=== PATIENT | male | born 1950 | race Caucasian/White ===

== ENCOUNTER 2022-10-23 08:34 | Day surgery (SDC) | payer MEDICARE, BC ==
[~2022-10-23] VITALS: Ht 185.4 cm; Wt 102.2 kg
--- NOTE | 2022-10-23 08:50 | NUR ---
Patient arrived at 0845. Assisted pt to [facility]. 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 Ian TAVAREZ at bedside. States to hold off on patient and not get him ready yet.
--- NOTE | 2022-10-23 09:15 | NUR ---
[facility] team here to get the patient now. Unable to complete admission questions/vital signs/physical assessment before patient left. [facility] team aware, Ian TAVAREZ aware and will consent the patient.
[2022-10-23] MEDS ORDERED: FLUT15.810 INH (09:34)
[2022-10-23] MEDS ORDERED: CLOP75TA34 PO (09:34)
[2022-10-23] MEDS ORDERED: TRAM50TA2 PO (09:34)
[2022-10-23] MEDS ORDERED: PSYL0.4C2 PO (09:34)
[2022-10-23] MEDS ORDERED: FLO0.4C PO (09:34)
[2022-10-23] MEDS ORDERED: ATOR20TA66 PO (09:34)
[2022-10-23] MEDS ORDERED: MONT10TA21 PO (09:34)
[2022-10-23] MEDS ORDERED: NORT25CA PO (09:34)
[2022-10-23] MEDS ORDERED: MIDO5TAB4 PO (09:34)
[2022-10-23] MEDS ORDERED: FLUT16SP26 INH (09:34)
[2022-10-23] MEDS ORDERED: CYAN250014 PO (09:34)
[2022-10-23 09:45] VITALS: BP_SYST 129; BP_SYST 144; BP_DIAS 61; BP_DIAS 78
[2022-10-23 10:00] VITALS: BP 136/75
[2022-10-23 10:15] VITALS: BP 134/74
[2022-10-23 10:30] VITALS: BP 137/77
[2022-10-23 10:58] LABS: APPEARANCE,CSF CLEAR; CSF SUPERNATANT COLOR COLORLESS; CSF VOLUME 14 ML; TUBE# COUNTED 3
[2022-10-23 11:00] VITALS: BP 150/84
[2022-10-23 11:00] LABS: CSF RBC 1 /CU MM (0); CSF WBC CT 10 /CU MM (0-5); LYMPHOCYTES,CSF 93 % (40-80); MONOCYTES,CSF 7 % (15-45)
[2022-10-23 14:14] LABS: GLUCOSE,CSF 49 MG/DL (40-75); TOTAL PROTEIN,CSF 66 MG/DL (30-60)
[2022-10-24 12:11] LABS: IMMUNOGLOBULIN G, QN, SERUM 1584 mg/dL (603-1613)
[2022-10-25 08:01] LABS: HSV 1 PCR Negative (Negative); HSV 2 PCR Negative (Negative)
[2022-10-27 14:04] LABS: IMMUNOGLOBULIN G, QN CSF 8.4 mg/dL (0.0-10.3)
[2022-10-28 16:31] LABS: LYME IGG P23 AB Absent (.); LYME IGG P28 AB Absent (.); LYME IGG P30 AB Absent (.); LYME IGG P41 AB Present (.); LYME IGG P45 AB Absent (.); LYME IGG P58 AB Present (.); LYME IGG P66 AB Absent (.); LYME IGG P93 AB Absent (.); LYME IGG WB INTERP Negative (.); LYME IGM P23 AB Absent (.); LYME IGM P39 AB Absent (.); LYME IGM P41 AB Absent (.); LYME IGM WB INTERP Negative (.); VDRL, CSF Non Reactive (Non Rea:<1:1)
== END 2022-10-23 11:20 | disposition home or self-care (01) ==
LOC: SSTAY O 08:34
PROVIDERS: ATTEND Nurse Practitioner Family
DX: G62.9 Polyneuropathy, unspecified (principal); M19.90 Unspecified osteoarthritis, unspecified site; G47.33 Obstructive sleep apnea (adult) (pediatric); J43.9 Emphysema, unspecified; I10 Essential (primary) hypertension; F17.200 Nicotine dependence, unspecified, uncomplicated; Z98.890 Other specified postprocedural states; Z79.51 Long term (current) use of inhaled steroids; Z79.899 Other long term (current) drug therapy
CPT/HCPCS: 36415; 62328; 82040; 82042; 82164; 82784; 83873; 83916; 86592; 86617; 87529; 88108; 89051

== ENCOUNTER 2024-09-15 15:10 | Inpatient (IN) | payer MEDICARE, BC ==
[~2024-09-15] VITALS: Ht 185.4 cm; Wt 96.0 kg
[~2024-09-15 15:10] MED LIST: ATOR20TA66 PO; CLOP75TA34 PO; CYAN250014 PO; FLO0.4C PO; FLUT15.810 INH; FLUT16SP26 INH; MIDO5TAB4 PO; MONT-47 PO; NORT25CA PO; PSYL0.4C2 PO; TRAM50TA2 PO
[2024-09-15] MEDS ORDERED: gabapentin 400mg capsule PO SCH (17:30)
[2024-09-15] MEDS: gabapentin 300mg capsule PO ONE (17:48)
[2024-09-15] MEDS ORDERED: ondansetron/PF 4mg/2ml inj IV PRN (18:30)
[2024-09-15] MEDS ORDERED: acetaminophen 325mg tablet PO PRN (18:30)
[2024-09-15 19:12] LABS: BASOPHILS # (AUTO) 0.1 X10'3 (0-0.2); BASOPHILS % (AUTO) 0.9 % (0-1); EOSINOPHILS # (AUTO) 0.2 X10'3 (0-0.9); EOSINOPHILS % (AUTO) 2.5 % (0-6); HEMOGLOBIN 9.3 g/dl (14.0-17.9); LYMPHOCYTES # (AUTO) 0.9 X10'3 (1.1-4.8); LYMPHOCYTES % (AUTO) 9.4 % (21-51); MEAN CORPUSCULAR HEMOGLOBIN 27.1 PG (27.0-31.0); MEAN CORPUSCULAR HGB CONC 32.1 g/dL (33.0-36.5); MEAN CORPUSCULAR VOLUME 84.4 FL (78-98); MEAN PLATELET VOLUME 8.1 FL (7.4-10.4); MONOCYTES # (AUTO) 0.9 X10'3 (0-0.9); MONOCYTES % (AUTO) 8.9 % (2-12); NEUTROPHILS # (AUTO) 7.9 X10'3 (1.8-7.7); NEUTROPHILS % (AUTO) 78.3 % (42-75); PLATELET COUNT 321 X10'3 (140-440); RED BLOOD COUNT 3.43 X10'6 (4.70-6.10); RED CELL DISTRIBUTION WIDTH 20.2 % (11.5-14.5)
[2024-09-15] MEDS: docusate sod 100mg capsule PO SCH (19:12)
[2024-09-15] MEDS: HYDROcodone/acetaminophen 10/325mg tab PO PRN (19:13)
[2024-09-15] MEDS: heparin, porcine 5000 units/ml vial SQ SCH (19:14)
[2024-09-15] MEDS ORDERED: GABA300C PO (19:24)
[2024-09-15 19:25] LABS: ALANINE AMINOTRANSFERASE 10 U/L (12-78); ALBUMIN 2.6 G/DL (3.4-5.0); ALBUMIN/GLOBULIN RATIO 0.5 (1.1-1.5); ALKALINE PHOSPHATASE 67 IU/L (46-116); ANION GAP 11 (8-16); ASPARTATE AMINO TRANSFERASE 5 U/L (10-37); BILIRUBIN,TOTAL 0.4 MG/DL (0.1-1.0); BLOOD UREA NITROGEN 77 MG/DL (7-18); BUN/CREATININE RATIO 12.6 (10.0-20.0); CALCIUM 8.3 MG/DL (8.5-10.1); CHLORIDE 112 MMOL/L (99-107); CREATININE 6.12 MG/DL (0.60-1.10); GLUCOSE 107 MG/DL (70-104); PHOSPHORUS 7.6 MG/DL (2.3-4.5); POTASSIUM 5.1 MMOL/L (3.5-5.1); SODIUM 141 MMOL/L (135-145); TOTAL CARBON DIOXIDE 18.3 MMOL/L (24-32); TOTAL PROTEIN 7.7 G/DL (6.4-8.2); eCRCL 12 ML/MIN; eGFR 9 ML/MIN
[2024-09-15 19:37] LABS: ANISOCYTOSIS 2+; PLATELET ESTIMATE NORMAL; POIKILOCYTOSIS 1+
[2024-09-15 19:38] LABS: BURR CELLS FEW; ELLIPTOCYTES 1+
[2024-09-15] MEDS: PERFLUTREN PROTEIN-A MICROSPHR (Optison) 0.22 MG/ML 3ML VIAL IV ONE (21:57)
[2024-09-16] VITALS (9 sets, daily range): BP systolic 108–153; BP diastolic 51–63; PULSE 66–86; RESP 12–19; TEMP 97.6–98.6; O2SAT 92–98
[2024-09-16 03:12] LABS: BASOPHILS # (AUTO) 0.1 X10'3 (0-0.2); BASOPHILS % (AUTO) 0.9 % (0-1); EOSINOPHILS # (AUTO) 0.3 X10'3 (0-0.9); EOSINOPHILS % (AUTO) 3.1 % (0-6); HEMATOCRIT 30.3 % (42.0-52.0); HEMOGLOBIN 9.6 g/dl (14.0-17.9); LYMPHOCYTES # (AUTO) 1.6 X10'3 (1.1-4.8); LYMPHOCYTES % (AUTO) 16.7 % (21-51); MEAN CORPUSCULAR HEMOGLOBIN 26.8 PG (27.0-31.0); MEAN CORPUSCULAR HGB CONC 31.7 g/dL (33.0-36.5); MEAN CORPUSCULAR VOLUME 84.4 FL (78-98); MEAN PLATELET VOLUME 8.3 FL (7.4-10.4); MONOCYTES % (AUTO) 10.2 % (2-12); NEUTROPHILS # (AUTO) 6.7 X10'3 (1.8-7.7); NEUTROPHILS % (AUTO) 69.1 % (42-75); PLATELET COUNT 360 X10'3 (140-440); RED BLOOD COUNT 3.59 X10'6 (4.70-6.10); RED CELL DISTRIBUTION WIDTH 20.1 % (11.5-14.5); WHITE BLOOD COUNT 9.7 X10'3 (4.5-11.0)
[2024-09-16 03:33] LABS: ALANINE AMINOTRANSFERASE 11 U/L (12-78); ALBUMIN 2.5 G/DL (3.4-5.0); ALBUMIN/GLOBULIN RATIO 0.5 (1.1-1.5); ALKALINE PHOSPHATASE 64 IU/L (46-116); ANION GAP 14 (8-16); ASPARTATE AMINO TRANSFERASE 9 U/L (10-37); BILIRUBIN,TOTAL 0.4 MG/DL (0.1-1.0); BLOOD UREA NITROGEN 74 MG/DL (7-18); BUN/CREATININE RATIO 12.7 (10.0-20.0); CALCIUM 8.5 MG/DL (8.5-10.1); CHLORIDE 112 MMOL/L (99-107); CREATININE 5.81 MG/DL (0.60-1.10); GLUCOSE 87 MG/DL (70-104); POTASSIUM 5.1 MMOL/L (3.5-5.1); SODIUM 142 MMOL/L (135-145); TOTAL CARBON DIOXIDE 15.6 MMOL/L (24-32); TOTAL PROTEIN 7.6 G/DL (6.4-8.2); eCRCL 12 ML/MIN; eGFR 10 ML/MIN
[2024-09-16 09:02] LABS: BILIRUBIN,URINE NEGATIVE (Neg); CLARITY,URINE CLOUDY (Clear); GLUCOSE, URINE NEGATIVE (Neg); KETONES,URINE NEGATIVE (Neg); LEUKOCYTE ESTERASE ,URINE NEGATIVE (Neg); NITRITES, URINE NEGATIVE (Neg); OCCULT BLOOD,URINE LARGE (Neg); PROTEIN,URINE 100 mg/dl (Neg); UROBILINOGEN,URINE 0.2 E.U/dL (0.2-1.0)
[2024-09-16 09:04] LABS: COLOR,URINE PINK (Yellow); UA COLLECTION TYPE FOLEY CATH
[2024-09-16 09:10] LABS: BACTERIA,URINE FEW /HPF (Neg); MUCUS STRANDS NONE SEEN /LPF (Neg); RBC,URINE TNTC /HPF (0-2); SQUAMOUS EPITHELIAL CELL,UR NONE SEEN /LPF (FEW)
[2024-09-16 09:11] LABS: RENAL CELLS, URINE FEW /HPF
[2024-09-16] MEDS: atorvastatin 20mg tablet PO SCH (09:29)
[2024-09-16] MEDS: montelukast 10mg tablet PO SCH (09:29)
[2024-09-16] MEDS: tamsulosin 0.4mg capsule PO SCH (09:29)
[2024-09-16] MEDS: clopidogrel 75mg tablet PO SCH (09:30)
[2024-09-16] MEDS: midodrine 5mg tablet PO SCH (09:30)
[2024-09-16] MEDS: sodium bicarbonate 650mg tablet PO SCH (09:37)
[2024-09-16] MEDS: LidoCAINE 2% Topical Jelly 11mL syringe (UROJET) TOP ONE (12:07)
[2024-09-16] MEDS: sodium bicarbonate 1meq/ml inj 150 ML in dextrose 5%-water 1,000 ML IV SCH (13:31)
[2024-09-16] MEDS ORDERED: budesonide 0.5mg/2ml UD nebule IH PRN (14:22)
[2024-09-16] MEDS ORDERED: albuterol 2.5 MG/3 ML nebule NEB PRN (15:25)
[2024-09-16] MEDS: furosemide 40mg/4ml inj IV ONE (15:35)
[2024-09-16] MEDS ORDERED: sevelamer carbonate 800mg tablet PO SCH (17:30)
[2024-09-16 17:41] LABS: ALBUMIN 2.2 G/DL (3.4-5.0); ANION GAP 15 (8-16); BLOOD UREA NITROGEN 70 MG/DL (7-18); BUN/CREATININE RATIO 12.8 (10.0-20.0); CALCIUM 7.9 MG/DL (8.5-10.1); CHLORIDE 111 MMOL/L (99-107); CREATININE 5.47 MG/DL (0.60-1.10); GLUCOSE 172 MG/DL (70-104); POTASSIUM 4.5 MMOL/L (3.5-5.1); SODIUM 145 MMOL/L (135-145); eCRCL 13 ML/MIN; eGFR 10 ML/MIN
[2024-09-16] MEDS: gabapentin 300mg capsule PO SCH (19:55)
[2024-09-16] MEDS: nortriptyline 25mg capsule PO SCH (19:55)
[2024-09-16] MEDS: furosemide 40mg/4ml inj IV SCH (19:57)
[2024-09-16] MEDS ORDERED: furosemide 10 MG/1 ML 10ml inj IV ONE (20:00)
[2024-09-16] MEDS: albuterol 2.5 MG/3 ML nebule NEB SCH (20:00)
[2024-09-16] MEDS ORDERED: tamsulosin 0.4mg capsule PO SCH (21:00)
[2024-09-17] VITALS (11 sets, daily range): BP systolic 115–160; BP diastolic 58–68; PULSE 67–89; RESP 16–20; TEMP 97.6–98.3; O2SAT 91–95
[2024-09-17 06:31] LABS: BASOPHILS # (AUTO) 0.1 X10'3 (0-0.2); BASOPHILS % (AUTO) 0.9 % (0-1); EOSINOPHILS # (AUTO) 0.4 X10'3 (0-0.9); EOSINOPHILS % (AUTO) 4.9 % (0-6); HEMOGLOBIN 8.9 g/dl (14.0-17.9); LYMPHOCYTES # (AUTO) 1.4 X10'3 (1.1-4.8); LYMPHOCYTES % (AUTO) 17.5 % (21-51); MEAN CORPUSCULAR HEMOGLOBIN 27.2 PG (27.0-31.0); MEAN CORPUSCULAR HGB CONC 32.8 g/dL (33.0-36.5); MEAN PLATELET VOLUME 8.4 FL (7.4-10.4); MONOCYTES # (AUTO) 0.9 X10'3 (0-0.9); MONOCYTES % (AUTO) 11.2 % (2-12); NEUTROPHILS # (AUTO) 5.2 X10'3 (1.8-7.7); NEUTROPHILS % (AUTO) 65.5 % (42-75); PLATELET COUNT 331 X10'3 (140-440); RED BLOOD COUNT 3.25 X10'6 (4.70-6.10); RED CELL DISTRIBUTION WIDTH 20.3 % (11.5-14.5); WHITE BLOOD COUNT 7.9 X10'3 (4.5-11.0)
[2024-09-17 07:03] LABS: ALANINE AMINOTRANSFERASE 15 U/L (12-78); ALBUMIN 2.2 G/DL (3.4-5.0); ALBUMIN/GLOBULIN RATIO 0.5 (1.1-1.5); ALKALINE PHOSPHATASE 58 IU/L (46-116); ANION GAP 14 (8-16); ASPARTATE AMINO TRANSFERASE 18 U/L (10-37); BILIRUBIN,TOTAL 0.4 MG/DL (0.1-1.0); BLOOD UREA NITROGEN 67 MG/DL (7-18); BUN/CREATININE RATIO 13.3 (10.0-20.0); CALCIUM 8.1 MG/DL (8.5-10.1); CHLORIDE 112 MMOL/L (99-107); CREATININE 5.03 MG/DL (0.60-1.10); FREE T4 (FREE THYROXINE) 1.09 NG/DL (0.73-1.40); GLUCOSE 85 MG/DL (70-104); POTASSIUM 4.1 MMOL/L (3.5-5.1); SODIUM 148 MMOL/L (135-145); THYROID STIMULATING HORMONE 4.83 ulU/ml (0.34-4.50); TOTAL CARBON DIOXIDE 22.3 MMOL/L (24-32); eCRCL 14 ML/MIN; eGFR 11 ML/MIN
[2024-09-17] MEDS: cyanocobalamin 500mcg tablet PO SCH (08:24)
[2024-09-17 08:32] LABS: PHOSPHORUS 6.4 MG/DL (2.3-4.5)
[2024-09-17] MEDS: sevelamer carbonate 800mg tablet PO SCH (10:05)
[2024-09-17] MEDS: polyethylene glycol 3350 17gm powd pack PO SCH (21:00)
[2024-09-17] MEDS: tamsulosin 0.4mg capsule PO SCH (21:12)
[2024-09-18] VITALS (14 sets, daily range): BP systolic 101–147; BP diastolic 48–53; PULSE 55–88; RESP 16–20; TEMP 97.9–99.2; O2SAT 90–97
[2024-09-18 06:27] LABS: BASOPHILS # (AUTO) 0.1 X10'3 (0-0.2); BASOPHILS % (AUTO) 0.6 % (0-1); EOSINOPHILS # (AUTO) 0.5 X10'3 (0-0.9); EOSINOPHILS % (AUTO) 4.9 % (0-6); HEMATOCRIT 27.4 % (42.0-52.0); HEMOGLOBIN 8.9 g/dl (14.0-17.9); LYMPHOCYTES # (AUTO) 1.6 X10'3 (1.1-4.8); LYMPHOCYTES % (AUTO) 17.2 % (21-51); MEAN CORPUSCULAR HEMOGLOBIN 26.7 PG (27.0-31.0); MEAN CORPUSCULAR HGB CONC 32.6 g/dL (33.0-36.5); MEAN CORPUSCULAR VOLUME 81.7 FL (78-98); MEAN PLATELET VOLUME 8.3 FL (7.4-10.4); MONOCYTES % (AUTO) 10.9 % (2-12); NEUTROPHILS # (AUTO) 6.1 X10'3 (1.8-7.7); NEUTROPHILS % (AUTO) 66.4 % (42-75); PLATELET COUNT 322 X10'3 (140-440); RED BLOOD COUNT 3.35 X10'6 (4.70-6.10); RED CELL DISTRIBUTION WIDTH 19.9 % (11.5-14.5); WHITE BLOOD COUNT 9.2 X10'3 (4.5-11.0)
[2024-09-18 06:48] LABS: ALANINE AMINOTRANSFERASE 13 U/L (12-78); ALBUMIN 2.2 G/DL (3.4-5.0); ALBUMIN/GLOBULIN RATIO 0.5 (1.1-1.5); ALKALINE PHOSPHATASE 51 IU/L (46-116); ANION GAP 11 (8-16); ASPARTATE AMINO TRANSFERASE 11 U/L (10-37); BILIRUBIN,TOTAL 0.3 MG/DL (0.1-1.0); BLOOD UREA NITROGEN 61 MG/DL (7-18); BUN/CREATININE RATIO 14.3 (10.0-20.0); CALCIUM 7.9 MG/DL (8.5-10.1); CHLORIDE 105 MMOL/L (99-107); CREATININE 4.28 MG/DL (0.60-1.10); GLUCOSE 86 MG/DL (70-104); POTASSIUM 3.6 MMOL/L (3.5-5.1); SODIUM 140 MMOL/L (135-145); TOTAL CARBON DIOXIDE 23.8 MMOL/L (24-32); eCRCL 17 ML/MIN; eGFR 14 ML/MIN
[2024-09-18 08:20] LABS: PHOSPHORUS 5.6 MG/DL (2.3-4.5)
[2024-09-18 08:33] LABS: COMPLEMENT C3, SERUM 110 mg/dL (82-167); COMPLEMENT C4, SERUM 26 mg/dL (12-38)
[2024-09-18] MEDS: sodium bicarbonate 650mg tablet PO SCH (08:53)
[2024-09-18] MEDS: ringers solution, lacted 1,000 ML IV SCH (13:43)
[2024-09-18] MEDS: bisacodyl 10mg suppository rectal RC PRN (18:24)
[2024-09-19] VITALS (9 sets, daily range): BP systolic 107–122; BP diastolic 43–49; PULSE 53–86; RESP 14–20; TEMP 98.1–98.6; O2SAT 91–98
[2024-09-19 06:14] LABS: BASOPHILS % (AUTO) 0.4 % (0-1); EOSINOPHILS # (AUTO) 0.7 X10'3 (0-0.9); EOSINOPHILS % (AUTO) 6.5 % (0-6); HEMATOCRIT 28.5 % (42.0-52.0); HEMOGLOBIN 9.5 g/dl (14.0-17.9); LYMPHOCYTES # (AUTO) 1.4 X10'3 (1.1-4.8); LYMPHOCYTES % (AUTO) 13.9 % (21-51); MEAN CORPUSCULAR HEMOGLOBIN 27.5 PG (27.0-31.0); MEAN CORPUSCULAR HGB CONC 33.3 g/dL (33.0-36.5); MEAN CORPUSCULAR VOLUME 82.6 FL (78-98); MEAN PLATELET VOLUME 8.6 FL (7.4-10.4); MONOCYTES # (AUTO) 1.3 X10'3 (0-0.9); MONOCYTES % (AUTO) 12.2 % (2-12); NEUTROPHILS # (AUTO) 6.9 X10'3 (1.8-7.7); PLATELET COUNT 338 X10'3 (140-440); RED BLOOD COUNT 3.45 X10'6 (4.70-6.10); RED CELL DISTRIBUTION WIDTH 19.7 % (11.5-14.5); WHITE BLOOD COUNT 10.3 X10'3 (4.5-11.0)
[2024-09-19 06:44] LABS: ALANINE AMINOTRANSFERASE 12 U/L (12-78); ALBUMIN 2.2 G/DL (3.4-5.0); ALBUMIN/GLOBULIN RATIO 0.4 (1.1-1.5); ALKALINE PHOSPHATASE 50 IU/L (46-116); ANION GAP 12 (8-16); ASPARTATE AMINO TRANSFERASE 8 U/L (10-37); BILIRUBIN,TOTAL 0.4 MG/DL (0.1-1.0); BLOOD UREA NITROGEN 52 MG/DL (7-18); BUN/CREATININE RATIO 13.7 (10.0-20.0); CHLORIDE 105 MMOL/L (99-107); GLUCOSE 98 MG/DL (70-104); POTASSIUM 3.2 MMOL/L (3.5-5.1); SODIUM 143 MMOL/L (135-145); TOTAL CARBON DIOXIDE 25.9 MMOL/L (24-32); TOTAL PROTEIN 7.1 G/DL (6.4-8.2); eCRCL 19 ML/MIN; eGFR 16 ML/MIN
[2024-09-19 09:15] LABS: PHOSPHORUS 4.8 MG/DL (2.3-4.5)
[2024-09-19] MEDS ORDERED: Chloraseptic (Phenol) Spray 177ml MM PRN (13:00)
[2024-09-19] MEDS ORDERED: sodium bicarbonate tablet PO ×2 (14:42→14:45)
[2024-09-19] MEDS ORDERED: SEVE800T8 PO (14:45)
[2024-09-19] MEDS ORDERED: sodium bicarbonate 650mg tablet PO SCH (20:00)
[2024-09-20 05:13] LABS: HBSAG SCREEN Negative (Negative)
[2024-09-21 08:24] LABS: A/G RATIO 0.7 (0.7-1.7); ALBUMIN 2.6 g/dL (2.9-4.4); ALPHA-1-GLOBULIN 0.4 g/dL (0.0-0.4); ALPHA-2-GLOBULIN 0.6 g/dL (0.4-1.0); BETA GLOBULIN 1.1 g/dL (0.7-1.3); GAMMA GLOBULIN 1.8 g/dL (0.4-1.8); GLOBULIN, TOTAL 3.9 g/dL (2.2-3.9); M-SPIKE Not Observed g/dL (Not Observed); PROTEIN, TOTAL, SERUM 6.5 g/dL (6.0-8.5)
== END 2024-09-19 15:45 | disposition home or self-care (01) | DRG 683 ==
LOC: ER 15:11 → ED HOLD 18:33 → EDBEDREQ 09-16 10:02 → ORTHO 4S 09-16 11:55
PROVIDERS: ADMIT Internal Medicine; ATTEND Family Medicine
DX: N17.0 Acute kidney failure with tubular necrosis (principal); E87.20 Acidosis, unspecified; N13.8 Other obstructive and reflux uropathy; Z66 Do not resuscitate; N18.5 Chronic kidney disease, stage 5; I25.10 Atherosclerotic heart disease of native coronary artery without angina pectoris; E87.5 Hyperkalemia; N40.1 Benign prostatic hyperplasia with lower urinary tract symptoms; R33.8 Other retention of urine; G62.9 Polyneuropathy, unspecified; I73.9 Peripheral vascular disease, unspecified; E83.39 Other disorders of phosphorus metabolism; Z79.899 Other long term (current) drug therapy; Z79.01 Long term (current) use of anticoagulants; Z87.891 Personal history of nicotine dependence; Z89.612 Acquired absence of left leg above knee; Z95.5 Presence of coronary angioplasty implant and graft
CPT/HCPCS: 36415; 71045; 74176; 76770; 80048; 80053; 81001; 82570; 83930; 83935; 84100; 84155; 84165; 84300; 84439; 84443; 85008; 85025; 86160; 87081; 87088; 87207; 87340; 93306; 93970; 94640; 94760; 97161; 97530; 99285; A5200; A6212; A6213; A6250; A6449; G0378; J1644; J1940; J3490; J7070; J7120